=== PATIENT | female | born 1955 | race Caucasian/White ===

== ENCOUNTER → 2019-02-17 | Outpatient (CLI) | payer OTHER, SELFPAY ==
[2019-02-24 12:25] LABS: HPV Reflexed? NOT INDICATED
== END | disposition home or self-care (01) ==
PROVIDERS: Visit Provider Obstetrics & Gynecology
DX: Z12.4 Encounter for screening for malignant neoplasm of cervix (principal)
CPT/HCPCS: 88175; G0145

== ENCOUNTER → 2020-06-09 | Outpatient (CLI) | payer OTHER, SELFPAY ==
[2020-06-14 16:57] LABS: HPV APTIMA, High Risk Negative (Negative)
[2020-06-14 17:01] LABS: HPV Reflexed? YES, CHARGE PATIENT
== END | disposition home or self-care (01) ==
PROVIDERS: Referring Provider Student in an Organized Health Care Education/Training Program; Visit Provider Student in an Organized Health Care Education/Training Program
DX: Z12.4 Encounter for screening for malignant neoplasm of cervix (principal)
CPT/HCPCS: 87624; 88175; G0145

== ENCOUNTER 2025-03-03 10:00 | Outpatient (RCR) | payer MEDICARE, SELFPAY ==
--- NOTE | 2025-01-28 11:49 | HP.OTEVAL ---
Patient's Visit Information Visit Information Visit Information: ARAVIND ANDINO is a 69 year old F, referred to Occupational Therapy by Dr. Burke Avila MD, with a diagnosis of left joint stiffness/left hand / closed non disp. fx of greater tuberosity. Date of Evaluation: 01/28/25 Occupational Therapist: Debora Russo, VENKAT/Teofilo, CHT Subjective Subjective: This 69 year old female was seen for OT eval with dx of left greater tuberosity of left humerus , left hand edema and left hand joint stiffness. DOI 12/18/24 fall at home. Pt initiated physical therapy yesterday and pt states she struggled with holding onto the eva for her shoulder ex. 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 pt is right handed pt currently is limited with ADLs and IADLs due to limited left shoulder ROM and inability to form a fist to hold onto objects. pt would like to return to using her left UE for all daily tasks. Pain left hand: Current Pain Intensity: 3 Pain Intensity Range: 6 ROM Forearm: right supination WNL left N Wrist: right CMC: right 10 left 10 MP: right 40 left 20 IP: right 65 left 45 ROM Comments: pt demo limited left functional grasp at this time Average left MCP 40* Average left PIP 20 * Strength Manager Of Maintenance: right 45# left NT Lateral Pinch: right 12# left NT Tripod Pinch: right 12# left NT Edema Wrist: right 15.5 left 20cm Other: MCP right 19.5cm left 21cm Sensation Sensation Comments: states tingling Quick DASH-Disab of Arm,Shoulder& Hand Quick DASH Score: 81.6650 Goals Goal:: pt will demo a left devops consultant strength to 30# or greater to return pt to PLOF. pt will demo a increase in left lateral/tripod pinch to 8# or greater to increase pts ind. with ADLs by dc Goal:: pt will demo left forearm/wrist ROM equal to unaffected UE by d/c to return pt to PLOF . pt will demo the ability to from composite fist to use left UE with ADLs by d.c Goal:: pt will report no pain greater than 3/10 with use of left UE by d.c Rehabilitation General Assessment: pt arrives 5 weeks and 6 days from DOI demo limited left UE ROM and inability to from a composite fist- pt demo need for skilled OT servcies 1-2x week for 8 weeks to assist pt in returning to her PLOF. Anticipated Interventions Anticipated Interventions: A/AAROM/PROM, Strengthening, Edema Control, Triggerpoint Release, Modalities, Orthoses, Joint Protection/Energy Conservation, Ergonomic Education, Fine Motor Coord/Jose, Education re assistive Equipment, Education re Diagnosis and Home Program Visit Plan Frequency: 1-2x /Week Duration: 2 Months TEXT: Thank you for the opportunity to evaluate your patient. For Medicare and Medicare HMO plans, please review the plan of care and approve it. It will need to be FAXED BACK to us at [phone] for Medicare purposes. Please let me know if there are questions or concerns regarding this plan of care. Physician Signature: Date:
--- NOTE | 2025-03-03 10:19 | HP.OTDCSUM ---
Discharge Summary D/C Summary: It has been my pleasure to treat ARAVIND ANDINO under orders from Dr. Burke Avila MD, for the diagnosis of left joint stiffness/left hand / closed non disp. fx of greater tuberosity for a total of 5 visit(s). Please see the following information for a summary of their discharge status. Overall Improvement % Improvement: 100 Objective Objective/Function: pt demo full tight functional fist left wrist 60/60 left forearm supination and pronation WNL left marine pipefitter helper strength 15# left lateral pinch 6# Goals Patient Goals: Regain Mobility, Decrease Pain and Use Hand/Wrist/Arm Normally Again Goal:: pt will demo a left marine pipefitter helper strength to 30# or greater to return pt to PLOF. ( progressing with HEP) pt will demo a increase in left lateral/tripod pinch to 8# or greater to increase pts ind. with ADLs by dc (progressing with HEP) Goal:: pt will demo left forearm/wrist ROM equal to unaffected UE by d/c to return pt to PLOF . pt will demo the ability to from composite fist to use left UE with ADLs by d.c ( goal met) Goal:: pt will report no pain greater than 3/10 with use of left UE by d.c ( goal met) Plan Plan: D/C D/C Information Discharge Comments: pt was seen for 5 for left hand swelling and stiffness. Pt has progressed towards her OT goals and agrees to D/C with HEP. d/c sentence: If there are questions or concerns regarding this patient's occupational therapy, please fell free to call me at [phone]. Thank you for the referral of this patient. Sincerely, Debora Russo, OTR/L, CHT
== END 2025-03-03 13:59 | disposition home or self-care (01) ==
LOC: OT 10:00
PROVIDERS: PCP Nurse Practitioner Family; Referring Provider Orthopaedic Surgery; Visit Provider Orthopaedic Surgery
DX: M25.642 Stiffness of left hand, not elsewhere classified (principal); S42.255D Nondisplaced fracture of greater tuberosity of left humerus, subsequent encounter for fracture with routine healing
CPT/HCPCS: 97110; 97140; 97166; 97530